=== PATIENT | male | born 1970 ===

== ENCOUNTER 2024-01-14 19:05 | Outpatient (CLI) | payer OTHER, SELFPAY | END 2024-01-14 19:06 | disposition home or self-care (01) | PROVIDERS: PCP Family Medicine; Visit Provider Family Medicine | DX: Z12.5 Encounter for screening for malignant neoplasm of prostate (principal); Z13.29 Encounter for screening for other suspected endocrine disorder; Z13.228 Encounter for screening for other metabolic disorders; Z13.220 Encounter for screening for lipoid disorders | CPT/HCPCS: 80053; 80061; 84443; G0103 ==